=== PATIENT | female | born 1965 | race Caucasian/White ===

== ENCOUNTER 2021-09-16 01:22 | Emergency (ER) | payer BC ==
[~2021-09-16] VITALS: Ht 172.7 cm; Wt 75.0 kg
[2021-09-16] MEDS ORDERED: normal saline 1000ml 1,000 ML IV ONE (01:40)
[2021-09-16] MEDS ORDERED: proCHLORperazine 10 MG/2 ml inj IV ONE (01:40)
[2021-09-16] MEDS ORDERED: acetaminophen 325mg tablet PO ONE (01:40)
[2021-09-16] MEDS ORDERED: ketorolac trometh. 30mg/ml inj. IV ONE (01:40)
[2021-09-16 02:09] LABS: BASOPHILS % (AUTO) 0.2 % (0-1); EOSINOPHILS % (AUTO) 0 % (0-6); HEMATOCRIT 37.8 % (35.0-45.0); HEMOGLOBIN 12.9 g/dl (12.0-16.0); LYMPHOCYTES # (AUTO) 0.7 X10'3 (1.1-4.8); LYMPHOCYTES % (AUTO) 9.2 % (21-51); MEAN CORPUSCULAR HEMOGLOBIN 30.9 PG (27.0-31.0); MEAN CORPUSCULAR HGB CONC 34.2 g/dL (33.0-36.5); MEAN CORPUSCULAR VOLUME 90.3 FL (78-98); MEAN PLATELET VOLUME 8.8 FL (7.4-10.4); MONOCYTES # (AUTO) 0.4 X10'3 (0-0.9); MONOCYTES % (AUTO) 4.6 % (2-12); PLATELET COUNT 164 X10'3 (140-440); RED BLOOD COUNT 4.19 X10'6 (4.20-5.60); WHITE BLOOD COUNT 8.1 X10'3 (4.5-11.0)
[2021-09-16 02:25] LABS: ALANINE AMINOTRANSFERASE 33 U/L (12-78); ALBUMIN 3.4 G/DL (3.4-5.0); ALBUMIN/GLOBULIN RATIO 1.1 (1.1-1.5); ALKALINE PHOSPHATASE 82 IU/L (46-116); ANION GAP 11 (8-16); ASPARTATE AMINO TRANSFERASE 21 U/L (10-37); BILIRUBIN,TOTAL 0.3 MG/DL (0.1-1.0); BLOOD UREA NITROGEN 6 MG/DL (7-18); BUN/CREATININE RATIO 9.2 (6.6-38.0); CALCIUM 8.3 MG/DL (8.5-10.1); CHLORIDE 98 MMOL/L (99-107); CREATININE 0.65 MG/DL (0.40-0.90); GLUCOSE 123 MG/DL (70-104); MAGNESIUM 1.5 MG/DL (1.5-2.4); POTASSIUM 3.2 MMOL/L (3.5-5.1); SODIUM 131 MMOL/L (135-145); TOTAL CARBON DIOXIDE 22.5 MMOL/L (24-32); TOTAL PROTEIN 6.6 G/DL (6.4-8.2); eGFR > 90 ML/MIN
[2021-09-16] MEDS ORDERED: NIRM1TAB PO (02:52)
[2021-09-16] MEDS ORDERED: PROC-8 PO (02:52)
[2021-09-16] MEDS ORDERED: haloperidol lactate 5mg/ml inj IM ONE (02:55)
[2021-09-16 03:26] VITALS: BP 138/87
== END 2021-09-16 03:34 | disposition home or self-care (01) ==
LOC: ER 01:23
DX: U07.1 COVID-19 (principal); R51.9 Headache, unspecified
CPT/HCPCS: 36415; 71045; 80053; 83605; 83735; 84145; 85025; 87040; 87635; 93005; 96361; 96372; 96374; 96375; 99285; C9803; J0780; J1630; J1885; J7030

== ENCOUNTER 2021-12-12 16:33 | Emergency (ER) | payer BC ==
[~2021-12-12] VITALS: Ht 172.7 cm; Wt 79.5 kg
[~2021-12-12 16:33] MED LIST: NIRM1TAB PO; PROC-8 PO
[2021-12-12 17:59] LABS: BASOPHILS % (AUTO) 0.1 % (0-1); EOSINOPHILS % (AUTO) 0.1 % (0-6); HEMATOCRIT 39.7 % (35.0-45.0); HEMOGLOBIN 13.3 g/dl (12.0-16.0); LYMPHOCYTES # (AUTO) 0.3 X10'3 (1.1-4.8); LYMPHOCYTES % (AUTO) 3.5 % (21-51); MEAN CORPUSCULAR HEMOGLOBIN 30.7 PG (27.0-31.0); MEAN CORPUSCULAR HGB CONC 33.5 g/dL (33.0-36.5); MEAN CORPUSCULAR VOLUME 91.7 FL (78-98); MEAN PLATELET VOLUME 8.6 FL (7.4-10.4); MONOCYTES # (AUTO) 0.2 X10'3 (0-0.9); MONOCYTES % (AUTO) 1.9 % (2-12); NEUTROPHILS # (AUTO) 8.4 X10'3 (1.8-7.7); NEUTROPHILS % (AUTO) 94.4 % (42-75); PLATELET COUNT 205 X10'3 (140-440); RED BLOOD COUNT 4.33 X10'6 (4.20-5.60); RED CELL DISTRIBUTION WIDTH 13.2 % (11.5-14.5); WHITE BLOOD COUNT 8.9 X10'3 (4.5-11.0)
[2021-12-12 18:02] LABS: URINE HCG NEGATIVE (NEG)
[2021-12-12 18:03] LABS: CLARITY,URINE CLOUDY (Clear); COLOR,URINE YELLOW (Yellow); GLUCOSE, URINE NEGATIVE (Neg); KETONES,URINE NEGATIVE (Neg); LEUKOCYTE ESTERASE ,URINE SMALL (Neg); NITRITES, URINE NEGATIVE (Neg); OCCULT BLOOD,URINE TRACE-INTACT (Neg); PROTEIN,URINE NEGATIVE (Neg); UA COLLECTION TYPE CLN CATCH MIDSTREAM; UROBILINOGEN,URINE 0.2 E.U/dL (0.2-1.0)
[2021-12-12 18:12] LABS: SQUAMOUS EPITHELIAL CELL,UR FEW /LPF (FEW); WBC,URINE 30-50 /HPF (0-4)
[2021-12-12 18:13] LABS: BACTERIA,URINE 1+ /HPF (Neg); WBC CLUMPS,URINE MANY /HPF (NEGATIVE)
[2021-12-12 18:15] LABS: RBC,URINE 0-2 /HPF (0-2); TRANSITIONAL EPI CELLS,URINE FEW /HPF
[2021-12-12 18:29] LABS: ALANINE AMINOTRANSFERASE 28 U/L (12-78); ALBUMIN 3.7 G/DL (3.4-5.0); ALBUMIN/GLOBULIN RATIO 1.4 (1.1-1.5); ALKALINE PHOSPHATASE 89 IU/L (46-116); ANION GAP 9 (8-16); ASPARTATE AMINO TRANSFERASE 21 U/L (10-37); BILIRUBIN,TOTAL 0.3 MG/DL (0.1-1.0); BLOOD UREA NITROGEN 11 MG/DL (7-18); BUN/CREATININE RATIO 15.7 (6.6-38.0); CALCIUM 8.3 MG/DL (8.5-10.1); CHLORIDE 102 MMOL/L (99-107); GLUCOSE 115 MG/DL (70-104); MAGNESIUM 1.4 MG/DL (1.5-2.4); POTASSIUM 3.4 MMOL/L (3.5-5.1); SODIUM 136 MMOL/L (135-145); TOTAL CARBON DIOXIDE 25.4 MMOL/L (24-32); TOTAL PROTEIN 6.4 G/DL (6.4-8.2); eGFR 86 ML/MIN
[2021-12-12] MEDS ORDERED: CefTRIAXone 1000mg IM Kit (w/lidocaine diluent) IM ONE (20:10)
[2021-12-12] MEDS ORDERED: ketorolac trometh. 30mg/ml inj. IM ONE (20:10)
[2021-12-12] MEDS ORDERED: acetaminophen 325mg tablet PO ONE (20:45)
[2021-12-13 01:42] VITALS: BP 109/52
[2021-12-13] MEDS ORDERED: CefTRIAXone/D5W-Rocephin 1gm 50 ML IV ONE (01:45)
[2021-12-13] MEDS ORDERED: ketorolac tromethamine 15mg/ml inj. IV ONE (01:45)
[2021-12-13] MEDS ORDERED: normal saline 1000ML IV soln IVB ONE (01:45)
--- NOTE | 2021-12-13 02:36 | NUR ---
IVP GIVEN BY BILINGUAL STUDENT TUTOR
[2021-12-13] MEDS ORDERED: ondansetron 4mg rapidly disintigrating tab PO ONE (03:00)
[2021-12-13] MEDS ORDERED: CEPH-585 PO (03:26)
[2021-12-13] MEDS ORDERED: ONDA4TAB12 PO (03:26)
== END 2021-12-13 03:54 | disposition home or self-care (01) ==
LOC: ER 16:34
DX: N10 Acute pyelonephritis (principal); R10.84 Generalized abdominal pain; R30.0 Dysuria; R51.9 Headache, unspecified; J45.909 Unspecified asthma, uncomplicated; F17.200 Nicotine dependence, unspecified, uncomplicated; Z87.442 Personal history of urinary calculi; Z87.440 Personal history of urinary (tract) infections; Z79.2 Long term (current) use of antibiotics; Z79.899 Other long term (current) drug therapy
CPT/HCPCS: 36415; 71045; 74176; 80053; 81001; 81025; 83605; 83735; 84145; 85025; 87040; 87088; 96361; 96372; 96374; 99285; J0696; J1885; J7030

== ENCOUNTER 2024-11-03 14:10 | Outpatient (CLI) | payer BC ==
[~2024-11-03 14:10] MED LIST changes: +ONDA-243 PO
[2024-11-03 14:54] VITALS: PULSE 56; RESP 14; O2SAT 99
== END 2024-11-03 23:59 | disposition home or self-care (01) ==
LOC: RT 14:10
PROVIDERS: ATTEND Nurse Practitioner Family
DX: J45.40 Moderate persistent asthma, uncomplicated (principal)
CPT/HCPCS: 94010; 94760

== ENCOUNTER 2025-02-15 00:30 | Emergency (ER) | payer BC ==
[~2025-02-15] VITALS: Ht 172.7 cm; Wt 79.5 kg
[2025-02-15 00:54] LABS: LEUKOCYTE ESTERASE ,URINE NEGATIVE (Neg); NITRITES, URINE NEGATIVE (Neg); OCCULT BLOOD,URINE TRACE-INTACT (Neg)
[2025-02-15 00:56] LABS: UA COLLECTION TYPE CLN CATCH MIDSTREAM
[2025-02-15 01:00] LABS: SQUAMOUS EPITHELIAL CELL,UR FEW /LPF (FEW)
[2025-02-15 01:04] LABS: MEAN PLATELET VOLUME 8.0 FL (7.4-10.4); RED CELL DISTRIBUTION WIDTH 13.7 % (11.5-14.5)
[2025-02-15 01:11] LABS: CREATININE 0.52 MG/DL (0.40-0.90); TOTAL CARBON DIOXIDE 27.5 MMOL/L (24-32); eCRCL 115 ML/MIN; eGFR > 90 ML/MIN
--- NOTE | 2025-02-15 04:40 | Physician Documentation ---
History of Present Illness Chief Complaint: Abdominal Pain Stated Complaint: STOMACH CRAMPS Time Seen by MD: 04:29 Mode of Arrival: Ambulatory HPI 59-year-old female presenting with abdominal pain. Patient states that she has had this issue for several months but that over the past week it has worsened. She describes this pressure-like gas he has pain around her belly button and coming up into her epigastrium. She states that she feels like she has a lot of gas however nothing will relieve it. She has been passing gas but this does not do anything. She denies any constipation or diarrhea. Denies any nausea or vomiting. She has been taking her Gas-X medication without much resolve. She is overall she feels very uncomfortable that is unsure why. Denies any urinary symptoms, fever, chills or any other associated symptoms. Medication Reconciliation Allergies: Coded Allergies: Sulfa (Sulfonamide Antibiotics) (Verified Allergy, Unknown, 02/15/25) Scheduled Nirmatrelvir/Ritonavir (Paxlovid Co-Pack (Eua)), 3 EACH PO BID Prochlorperazine Maleate (Compazine), 1 TAB PO Q6H Scheduled PRN ONDANSETRON ODT 4mg tablet (Ondansetron Odt), 1 TABLET PO Q6H PRN for nausea/vomiting Past Medical History Past Medical History: Headache, Asthma, Kidney Stones, UTI Past Surgical History: no surgical history Alcohol Use: None Drug Use: none Lives with: Spouse Lives In: Home Occupation: employed Review of Systems All Other Systems at this time: Reviewed and Negative Physical Exam Vital Signs: Temperature: 98.3, Source: Temporal, Heart Rate: 54, Respiratory Rate: 14, BP: 149/74, Pulse Oximetry: 97, Weight: 79.550 Oxygen Flow Rate: 0 Physical Exam I have reviewed the triage vitals. CONST: Well developed and well nourished. In no acute distress HENT: Head Atraumatic EYES: Pupils are equal, round and reactive to light. Normal conjunctiva NECK: Normal range of motion. Supple. CARDIO: Normal rate and regular rhythm. No murmurs, rubs, or gallops. S1, S2. PULM/CHEST: No respiratory distress. Lungs clear to auscultation. No wheeze ABD: Soft , slightly tender to palpation over the umbilicus and epigastrium. Nondistended. Bowel sounds normal. No guarding. : Exam deferred MSK: No edema. No deformity. NEURO: Alert and oriented to person, place and time. Moving all extremities SKIN: Warm and dry. PSYCH: Normal mood and affect. Good eye contact. Progress Results/Orders Results/Orders Orders - NOEL MADRID MD Normal Saline 1000ml (0.9% Sodium Chlori (02/15/25 04:40) Mag & Alum Hydrox/Simeth Susp (Maalox Or (02/15/25 04:40) Dicyclomine Capsule (Bentyl Capsule) (02/15/25 04:40) Lidocaine 2% Viscous (Xylocaine 2% Visco (02/15/25 04:40) Liver Panel (02/15/25 04:38) Completed Orders - NOEL MADRID MD Cbc/Diff (02/15/25 00:41) Lipase (02/15/25 00:41) BMP (02/15/25 00:41) Ua W/Microscopic, Cult If Ind (02/15/25 00:39) Vital Signs 02/15/25 02/15/25 02/15/25 02/15/25 00:33 03:05 04:14 04:17 Temp 97.8 98.3 98.3 Pulse 63 65 54 Resp 16 16 14 B/P (MAP) 146/68 117/58 (77) 149/74 (99) Pulse Ox 98 98 97 O2 Flow Rate 0 0 Laboratory Tests Test 02/15/25 00:39 02/15/25 00:52 Urine Specimen Description Cln catch midstream Urine Color Yellow Urine Clarity Clear Urine pH 7.0 Urine Specific [place] <=1.005 Urine Protein Negative Urine Glucose (UA) Negative Urine Ketones Negative Urine Occult Blood Trace-intact Urine Nitrite Negative Urine Bilirubin Negative Urine Urobilinogen 0.2 Urine Leukocyte Esterase Negative Urine RBC 0-2 Urine WBC None seen Urine Squamous Epithelial Cells Few Urine Bacteria Few Urine Culture Indicated Not ind Volume Urine Centrifuged 10 ml Urine Comment White Blood Count 8.1 Red Blood Count 4.39 Hemoglobin 13.4 Hematocrit 39.3 Mean Corpuscular Volume 89.5 Mean Corpuscular Hemoglobin 30.4 Mean Corpuscular Hemoglobin Concent 34.0 Red Cell Distribution Width 13.7 Platelet Count 246 Mean Platelet Volume 8.0 Neutrophils (%) (Auto) 71.6 Lymphocytes (%) (Auto) 23.7 Monocytes (%) (Auto) 3.9 Eosinophils (%) (Auto) 0.5 Basophils (%) (Auto) 0.3 Neutrophils # (Auto) 5.8 Lymphocytes # (Auto) 1.9 Monocytes # (Auto) 0.3 Eosinophils # (Auto) 0.0 Basophils # (Auto) 0.0 CBC Comment Sodium Level 127 L Potassium Level 4.2 Chloride Level 95 L Carbon Dioxide Level 27.5 Anion Gap 5 L Blood Urea Nitrogen 11 Creatinine 0.52 Estimated GFR/1.73 m2 > 90 BUN/Creatinine Ratio 21.2 H Glucose Level 115 H Calcium Level 9.0 Albumin 3.8 Lipase 43 Chemistry Comments EKG/XRAY/CT/US/VASC/MRI EKG : Additional Comment EKG as interpreted by ED MD indicating Mild sinus bradycardia with a rate of 54 beats per minute, no ischemia, normal axis CT : Impression EXAM: CT CT ABDOMEN PELVIS History: abd pain Comparison Study: CT ABDOMEN PELVIS on DOS: 12/12/21 TECHNIQUE: Multidetector spiral CT of the abdomen and pelvis was performed from lung bases to pubic symphysis. Imaging was performed without intravenous contrast. Coronal and sagittal multiplanar reformats were obtained from the axial data set by the technologist. Radiation Dose : 1. Abdomen/Pelvis: CTDIvol 25.4 mGy, DLP 1200.5 mGy*cm. FINDINGS: Evaluation of vasculature and solid organs is limited due to lack of intravenous contrast use. Lung Bases: Lung bases are clear. Visualized portions of the heart and pericardium are unremarkable. Liver: The liver is normal in size. No focal lesions. Gallbladder and Biliary Tree: The gallbladder is unremarkable. No intrahepatic or extrahepatic biliary ductal dilatation. Spleen: Unremarkable Pancreas: The pancreas is grossly unremarkable. Adrenal Glands: Unremarkable Kidneys: 3.7 cm left exophytic renal mass in the upper pole which is isodense to the adjacent renal parenchyma similar to prior CT from 2021. No renal calculi or hydronephrosis. GI tract: The stomach is grossly normal in appearance. No evidence of small bowel wall thickening or abnormal dilatation to suggest bowel obstruction. The colon is unremarkable. The appendix is visualized and is normal. Peritoneum/mesentery/retroperitoneum. No evidence of free intraperitoneal air. No ascites. No evidence of suspicious lymphadenopathy. Abdominal Wall: Unremarkable. Vasculature: The visualized abdominal aorta is normal in size and caliber. Evaluation of abdominal and pelvic vessels is limited due to lack of intravenous contrast. Urinary Bladder: Grossly unremarkable for degree of distention. Pelvic Organs: Unremarkable Musculoskeletal: No aggressive focal bony lesions, acute fractures or dislocation. IMPRESSION: 1. No acute abdominal or pelvic findings. Medical Decision Making Additional information obtaine: old records Findings - Differential Dx:Considerations: Bowel obstruction, Hepatitis Additional Comments 59-year-old female presenting with abdominal pain. Labs and imaging initiated. Her CT of the abdomen and pelvis is grossly unremarkable. Her lab workup indicating slight hyponatremia with a sodium of 127. Patient was treated with a GI cocktail which greatly improved her symptoms. She was also given 1 L of IV n ormal saline. At this point in time patient is clinically improved. Her lab workup is grossly unremarkable. EKG and chest x-ray are normal. I believe the patient is stable and safe for discharge home. I advised her that she needs to follow up with the PCP for a referral to Gastroenterology for further evaluation of her abdominal pain. She will be discharged home and advised to continue with her Pepcid and simethicone as needed. Return to the ED with any acutely worsening symptoms. Departure Disposition: 01 HOME / SELF CARE / HOMELESS Impression: Primary Impression: Abdominal pain Additional Impression: Hyponatremia Condition: Improved Discharge Instructions: Abdominal Pain (Nonspecific) Additional Instructions: Continue with your home medications. Monitor her symptoms closely. Please follow up with her PCP for referral to Gastroenterology. After return to the ED with any acutely worsening symptoms. Referrals: NO PRIMARY CARE PROVIDER (PCP) Signature Scribe Signature: 1 Attestation: The note accurately reflects work and decisions made by me.Noel Bermudez MD 02/17/25 17:31 NOEL MADRID MD Feb 15, 2025 04:40
[2025-02-15] MEDS: mag hydrox/Alum hydrox/simeth 30ml oral suspension PO ONE (05:12)
[2025-02-15] MEDS: LIDOcaine 2% Viscous 15ml cup MM ONE (05:14)
[2025-02-15] MEDS: normal saline 1000ml 1,000 ML IV ONE (05:22)
--- NOTE | 2025-02-15 05:22 | RADIOLOGY REPORT ---
EXAM: CT CT ABDOMEN PELVIS History: abd pain Comparison Study: CT ABDOMEN PELVIS on DOS: 12/12/21 TECHNIQUE: Multidetector spiral CT of the abdomen and pelvis was performed from lung bases to pubic symphysis. Imaging was performed without intravenous contrast. Coronal and sagittal multiplanar reformats were obtained from the axial data set by the technologist. Radiation Dose : 1. Abdomen/Pelvis: CTDIvol 25.4 mGy, DLP 1200.5 mGy*cm. FINDINGS: Evaluation of vasculature and solid organs is limited due to lack of intravenous contrast use. Lung Bases: Lung bases are clear. Visualized portions of the heart and pericardium are unremarkable. Liver: The liver is normal in size. No focal lesions. Gallbladder and Biliary Tree: The gallbladder is unremarkable. No intrahepatic or extrahepatic biliary ductal dilatation. Spleen: Unremarkable Pancreas: The pancreas is grossly unremarkable. Adrenal Glands: Unremarkable Kidneys: 3.7 cm left exophytic renal mass in the upper pole which is isodense to the adjacent renal parenchyma similar to prior CT from 2021. No renal calculi or hydronephrosis. GI tract: The stomach is grossly normal in appearance. No evidence of small bowel wall thickening or abnormal dilatation to suggest bowel obstruction. The colon is unremarkable. The appendix is visualized and is normal. Peritoneum/mesentery/retroperitoneum. No evidence of free intraperitoneal air. No ascites. No evidence of suspicious lymphadenopathy. Abdominal Wall: Unremarkable. Vasculature: The visualized abdominal aorta is normal in size and caliber. Evaluation of abdominal and pelvic vessels is limited due to lack of intravenous contrast. Urinary Bladder: Grossly unremarkable for degree of distention. Pelvic Organs: Unremarkable Musculoskeletal: No aggressive focal bony lesions, acute fractures or dislocation. IMPRESSION: 1. No acute abdominal or pelvic findings.
--- NOTE | 2025-02-15 05:53 | ELECTROCARDIOGRAPH REPORT ---
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 Drew Montgomery Measurements Intervals [place] Rate: 54 P: 56 IA: 180 QRS: 22 QRSD: 91 T: 56 QT: 491 QTc: 466 Interpretive Statements A-V dual-paced complexes w/ some inhibition No further analysis attempted due to paced rhythm Electronically Signed On 02-15-2025 7:35:[address] Drew Montgomery Please click the below link to view image of tracing.
--- NOTE | 2025-02-15 05:54 | RADIOLOGY REPORT ---
CHEST RADIOGRAPH INDICATION: abd pain TECHNIQUE: Single frontal view of the chest was obtained COMPARISON: CHEST,SINGLE VIEW on DOS: 12/12/21, CHEST,SINGLE VIEW on DOS: 09/16/21 FINDINGS: Lines and Tubes: None Lungs: Clear Pleura: No effusion. No pneumothorax. Cardiomediastinal contours: Unremarkable Bones: Unremarkable IMPRESSION: No acute disease.
[2025-02-15 06:13] VITALS: BP 126/64; PULSE 52; RESP 14; TEMP 98.3; O2SAT 97
== END 2025-02-15 06:15 | disposition home or self-care (01) ==
LOC: ER 00:30
DX: R10.13 Epigastric pain (principal); E87.1 Hypo-osmolality and hyponatremia; Z87.440 Personal history of urinary (tract) infections; Z88.2 Allergy status to sulfonamides; Z87.442 Personal history of urinary calculi; Z95.0 Presence of cardiac pacemaker; Z79.899 Other long term (current) drug therapy
CPT/HCPCS: 36415; 71045; 74176; 80048; 80076; 81001; 83690; 85025; 93005; 96360; 99285; J7030